=== PATIENT | male | born 1995 | race Caucasian/White ===

== ENCOUNTER 2021-12-11 11:31 | Emergency (ER) | payer OTHER ==
[~2021-12-11] VITALS: Ht 182.9 cm; Wt 81.7 kg
--- OUTSIDE RECORDS SUMMARY | 2021-12-11 11:34 | XMS ---
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 Brayan has no Care Guidelines for this patient. Clarita VISIT COUNT (12 MO.) 1 DIANA Fernandez TOTAL 1 NOTE: Visits indicate total known visits. ED/C VISIT TRACKING (12 MO.) 12/11/2021 11:32 [facility] Reyna [place] TYPE: Emergency COMPLAINT: - EXTREMITY PAIN/INJURY INPATIENT VISIT TRACKING (12 MO.) No inpatient visits to display in this time frame [id number]
[2021-12-11] MEDS ORDERED: DOXYCYCLINE HY100 MG PO (14:22)
== END 2021-12-11 14:40 | disposition home or self-care (01) ==
LOC: ED 11:31
DX: S81.801A Unspecified open wound, right lower leg, initial encounter (principal); L03.115 Cellulitis of right lower limb; R51.9 Headache, unspecified; R23.8 Other skin changes; R60.0 Localized edema; V19.9XXA Pedal cyclist (driver) (passenger) injured in unspecified traffic accident, initial encounter
CPT/HCPCS: 99283

== ENCOUNTER 2022-01-29 00:18 | Emergency (ER) | payer OTHER ==
[~2022-01-29] VITALS: Ht 182.9 cm; Wt 81.7 kg
[~2022-01-29 00:18] MED LIST: DOXYCYCLINE HY100 MG PO
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
[2022-01-29] MEDS ORDERED: BACTRIM DS TAB1 EACH PO (00:35)
== END 2022-01-29 00:44 | disposition home or self-care (01) ==
LOC: ED 00:18
DX: L03.115 Cellulitis of right lower limb (principal)
CPT/HCPCS: 99283; A9270

== ENCOUNTER 2022-02-21 09:52 | Emergency (ER) | payer OTHER ==
[~2022-02-21] VITALS: Ht 182.9 cm; Wt 81.7 kg
[~2022-02-21 09:52] MED LIST changes: +BACTRIM DS TAB1 EACH PO
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
== END 2022-02-21 14:24 | disposition home or self-care (01) ==
LOC: ED 09:52
DX: T50.901A Poisoning by unspecified drugs, medicaments and biological substances, accidental (unintentional), initial encounter (principal); T18.9XXA Foreign body of alimentary tract, part unspecified, initial encounter
CPT/HCPCS: 36415; 74022; 80048; 85025; 99284-25